=== PATIENT | female | born 1990 | race Caucasian/White ===

== ENCOUNTER 2021-02-05 21:10 | Inpatient (IN) | payer OTHER ==
[2021-02-06] MEDS ORDERED: PROMETHAZINE HCL 25 MG/1 ML VIAL IVPB ONE (03:15)
[2021-02-06] MEDS ORDERED: BUTORPHANOL TARTRATE 2 MG/ML VIAL IVPB ONE (03:15)
[2021-02-06] MEDS ORDERED: PROMETHAZINE HCL 25 MG/1 ML VIAL ONE (03:26)
[2021-02-06] MEDS ORDERED: BUTORPHANOL TARTRATE 2 MG/ML VIAL ONE (03:26)
[2021-02-06] MEDS ORDERED: ELECTROLYTE-148 SOLN 1,000 ML IV SCH (03:30)
[2021-02-06 03:39] LABS: BASO % 0.2 % (0-2.0); EOS % 0.1 % (0-4.5); HEMATOCRIT 39.4 % (32.4-45.2); HEMOGLOBIN 13.5 GM/dL (10.7-15.3); LYMPH % 13.8 % (8-40); MCH 29.8 pg (25.7-33.7); MCHC 34.3 g/dl (32.0-36.0); MEAN CELL VOLUME 86.9 fl (80-96); MEAN PLT VOLUME 8.8 fl (7.5-11.1); MONO % 4.6 % (3.8-10.2); NEUT % 81.3 % (42.8-82.8); PLATELET COUNT 173 K/MM3 (134-434); RBC 4.53 M/mm3 (3.60-5.2); RDW 12.9 % (11.6-15.6); WHITE BLOOD COUNT 10.2 K/mm3 (4.0-10.0)
[2021-02-06 03:47] LABS: INR 0.9 (0.83-1.09); PROTHROMBIN TIME (PATIENT) 11.1 SEC (9.7-13.0)
[2021-02-06 03:50] LABS: ACTIVATED PTT 24.2 SECONDS (25.2-36.5); POTASSIUM 3.7 mmol/L (3.5-5.1)
[2021-02-06 03:51] LABS: CALCIUM 8.6 mg/dL (8.5-10.1)
[2021-02-06 03:55] LABS: CREATININE 0.6 mg/dL (0.55-1.3)
[2021-02-06 04:42] VITALS: BMI 29.2
[2021-02-06 05:00] LABS: HIV INTERPRETATION NEGATIVE (NEGATIVE)
[2021-02-06] MEDS ORDERED: PCA PUMP NR ONE (07:26)
[2021-02-06] MEDS ORDERED: NALOXONE HCL 0.4 MG/ML VIAL IVPUSH PRN (07:44)
[2021-02-06] MEDS ORDERED: FENTANYL/BUPIVACAINE/NS/PF - PCEA - 50 ML DISP.SYRIN EP SCH (07:45)
[2021-02-06] MEDS ORDERED: BUPIVACAINE HCL/PF 0.25% (2.5MG/ML) 10 ML VIAL ONE (07:48)
[2021-02-06] MEDS: DEXTROSE 5%-LACTATED RINGERS 1,000 ML IV SCH (08:00)
[2021-02-06] MEDS ORDERED: LIDOCAINE HCL 1% PRESERVATIVE FREE - 30ML VIAL ONE (12:26)
[2021-02-06] MEDS ORDERED: OXYTOCIN 20 UNITS in 0.9% NS 20 UNIT/1,000 ML INFUS.BAG IV ONE ×2 (12:27→14:39)
[2021-02-06] MEDS ORDERED: BENZOCAINE 28 GM HEMORRHOIDAL OINTMENT TP PRN (13:09)
[2021-02-06] MEDS ORDERED: METHYLERGONOVINE MALEATE 0.2 MG/1 ML AMP IM PRN (13:09)
[2021-02-06] MEDS ORDERED: WITCH HAZEL 50% (TUCKS) 40 PAD/JAR PAD TP PRN (13:09)
[2021-02-06] MEDS ORDERED: BISACODYL 10 MG SUPP.RECT RC PRN (13:09)
[2021-02-06] MEDS ORDERED: ACETAMINOPHEN 325 MG TABLET (FP) PO PRN (13:09)
[2021-02-06] MEDS ORDERED: BENZOCAINE 20% 57 GM BOTTLE TP PRN (13:09)
[2021-02-06] MEDS ORDERED: oxyCODONE HCL 5 MG TABLET PO PRN (13:09)
[2021-02-06] MEDS ORDERED: OXYTOCIN 20 UNITS in 0.9% NS 20 UNIT/1,000 ML INFUS.BAG IV SCH (13:15)
[2021-02-06] MEDS ORDERED: OXYTOCIN 30 UNITS in 0.9% NS 30 UNIT/500 ML INFUS.BAG IVPB SCH (16:00)
[2021-02-06] MEDS: IBUPROFEN 600 MG TABLET (FP) PO PRN (19:15)
[2021-02-07] MEDS: DEXTROSE 5%-LACTATED RINGERS 1,000 ML IV SCH (08:15)
[2021-02-07 10:00] LABS: BASO % 0.7 % (0-2.0); EOS % 0.5 % (0-4.5); HEMATOCRIT 29.9 % (32.4-45.2); HEMOGLOBIN 10.5 GM/dL (10.7-15.3); LYMPH % 19.3 % (8-40); MCH 30.4 pg (25.7-33.7); MCHC 35.2 g/dl (32.0-36.0); MEAN CELL VOLUME 86.5 fl (80-96); MEAN PLT VOLUME 8.6 fl (7.5-11.1); MONO % 5.5 % (3.8-10.2); PLATELET COUNT 166 K/MM3 (134-434); RBC 3.46 M/mm3 (3.60-5.2); RDW 13.3 % (11.6-15.6)
[2021-02-07] MEDS ORDERED: DIPHTH,PERTUSS(ACELL),TET 0.5 ML DISP.SYRIN IM ONE (10:00)
[2021-02-07] MEDS: PRENATAL VITAMINS W/ FOLIC ACID TABLET (FP) PO SCH (10:22)
[2021-02-07] MEDS: IBUPROFEN 600 MG TABLET (FP) PO PRN ×3 (10:22→22:56)
[2021-02-07] MEDS ORDERED: SENNOSIDES/DOCUSATE COMBO (SENNA PLUS) TABLET (UD) PO PRN (22:00)
[2021-02-08 07:57] VITALS: BP 115/74; PULSE 85; TEMP 97.9
[2021-02-08] MEDS: IBUPROFEN 600 MG TABLET (FP) PO PRN (08:59)
[2021-02-08] MEDS: PRENATAL VITAMINS W/ FOLIC ACID TABLET (FP) PO SCH (08:59)
[2021-02-08] MEDS: DEXTROSE 5%-LACTATED RINGERS 1,000 ML IV SCH (09:02)
== END 2021-02-08 17:59 | disposition home or self-care (01) | DRG 807 ==
LOC: JDEL 21:10 → JLDR 02-06 02:05 → J3W 02-06 15:13
PROVIDERS: ADMIT Obstetrics & Gynecology; ATTEND Obstetrics & Gynecology
PROC: 10E0XZZ Delivery of Products of Conception, External Approach (ICD-10-PCS; principal; 2021-02-06)
PROC: 0W8NXZZ Division of Female Perineum, External Approach (ICD-10-PCS; 2021-02-06)
DX: O70.0 First degree perineal laceration during delivery (principal); Z37.0 Single live birth; O99.284 Endocrine, nutritional and metabolic diseases complicating childbirth; E03.9 Hypothyroidism, unspecified; Z3A.39 39 weeks gestation of pregnancy
CPT/HCPCS: 36415; 59409; 80048; 85025; 85610; 85730; 86780; 86850; 86900; 86901; 87389; 90715; C9803; U0003; U0005